=== PATIENT | female | born 1980 | race American Indian/Alaskan Native ===

== ENCOUNTER 2023-04-02 10:42 | Emergency (ER) | payer OTHER, SELFPAY ==
[2023-04-02 11:05] VITALS: BP 117/79; PULSE 120; RESP 16; TEMP 36.4; O2SAT 100
--- NOTE | 2023-04-02 11:17 | ED.SKABFB ---
HPI - Skin/Abscess/Foreign Bdy General Chief complaint: Skin/Abscess/Foreign Body Stated complaint: Blister near upper thigh Time Seen by Provider: 04/02/23 11:08 Source: patient and RN notes reviewed Mode of arrival: ambulatory Limitations: no limitations History of Present Illness HPI narrative: Patient presents today complaining of a blister to the right groin area that has been spreading slightly since onset. Reports the area has been present for the past couple of months. Denies pain or itching. States she does get some clear fluid from the area if she tries to squeeze it. Related Data Home Medications Medication Instructions Recorded Confirmed No Home Medications 04/02/23 04/02/23 Allergies Allergy/AdvReac Type Severity Reaction Status Date / Time No Known Allergies Allergy Verified 04/02/23 11:05 Review of Systems Review of Systems: CONSTITUTIONAL: Denies body aches, fever, chills, or sweats. EYES: Denies visual changes, redness, or discharge. ENT: Denies rhinorrhea, congestion, sore throat, or otalgia. CARDIOVASCULAR: Denies chest pain, palpitations, or edema. RESPIRATORY: Denies cough or dyspnea. GASTROINTESTINAL: Denies abdominal pain, nausea, vomiting, or diarrhea. GENITOURINARY: Denies dysuria or hematuria. SKIN: Blister to right groin MUSCULOSKELETAL: Denies back pain, joint pain, or myalgia. NEUROLOGIC: Denies headache, numbness, tingling, or weakness. PSYCH: Denies depression or anxiety. PMFSH Comments At time of signature, I have reviewed and agree with nursing past medical, surgical, social and family history unless otherwise noted. Please see nursing chart for further information. There is no relevant family history pertinent to the presenting complaint Exam Narrative: GENERAL: Well-appearing, well-nourished, and in no acute distress. HEAD: Normocephalic, atraumatic. EYES: EOMI. No redness or drainage. Conjunctivae normal. ENT: Mucous membranes pink and moist. NECK: Normal AROM. CHEST: No respiratory distress. EXTREMITIES: Normal range of motion. No edema. SKIN: Warm, dry, no rash. Capillary refill normal. Normal skin turgor. 2 small dome shaped papules with umbilication in the center. No erythema or drainage noted. Nontender to palpation. NEURO: No focal deficits. Alert and oriented x3. Gait steady. PSYCH: Normal affect. No signs of depression or anxiety. Course Course Level of Care: Express Care Visit Vital Signs Vital signs: Vital Signs Temperature 97.6 F 04/02/23 11:05 Pulse Rate 120 H 04/02/23 11:05 Respiratory Rate 16 04/02/23 11:05 Blood Pressure 117/79 04/02/23 11:05 Pulse Oximetry 100 04/02/23 11:05 Temperature 97.6 F 04/02/23 11:05 Pulse Rate 120 H 04/02/23 11:05 Respiratory Rate 16 04/02/23 11:05 Blood Pressure 117/79 04/02/23 11:05 Pulse Oximetry 100 04/02/23 11:05 Reviewed MDM - Skin/Abscess/Foreign Bdy MDM Narrative Medical decision making narrative: Bumps are consistent with molluscum contagiosum. Discussed no treatment at this time as they are likely to self resolved, but patient can follow-up with director of elementary education. Agrees with plan. Differential Diagnosis Differential diagnosis: Likely abscess of skin or subcutaneous tissue, viral exanthem, dermatophytosis, cellulitis, insect bites, impetigo and other (Molluscum contagiosum) Critical Care Time Critical Care Time Critical Care Time: No Discharge Plan Discharge Clinical Impression: Molluscum contagiosum Patient Disposition: Home, Self-Care Condition: Stable Instructions: Molluscum Contagiosum (ED) Additional Instructions: Your bumps are likely due to molluscum contagiosum. These should resolve on their own, however, please follow-up with director of elementary education for further evaluation and treatment. Prescriptions: No Action No Home Medications Follow-up/Referrals: PHYSICIAN,CHEMICAL MIXER [Primary Care Provider] - Time of Dispo
== END 2023-04-02 11:31 | disposition home or self-care (01) ==
PROVIDERS: Emergency Provider Nurse Practitioner
DX: B08.1 Molluscum contagiosum (principal)
CPT/HCPCS: 99211; G0463